=== PATIENT | male | born 1965 | race Caucasian/White ===

== ENCOUNTER 2023-11-04 19:00 | Emergency (ER) | payer OTHER, SELFPAY ==
[2023-11-04 19:02] VITALS: BP 146/87
[2023-11-04 19:18] VITALS: BMI 36.3
--- NOTE | 2023-11-04 19:19 | ED.GENMED ---
History of Present Illness
General
Chief Complaint: Chest Pain
Source: patient
Exam Limitations: none
Time Seen by Provider: 11/04/23 19:07
History of Present Illness
History of Present Illness:
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 Is worse to take a deep breath. He denies shortness of breath. Initially seen at the urgent care and sent here for evaluation. No leg
swelling or calf pain. The pain is made worse when he lies down and when he takes a deep breath. It also tend to start after having a cheeseburger yesterday. No vomiting. No nausea. No fever. No other
Phy Exam
Physical Exam
Physical Exam:
General: Well-appearing male no acute respiratory distress
HEENT: Normocephalic atraumatic
Heart: Regular rate and rhythm no murmurs
Lungs: Clear no wheeze
Abdomen soft slightly tender in epigastric region no guarding rebound normal bowel sounds nondistended nontender
Extremities: No cyanosis
Scores
Heart Score for Chest Pain Patients
STEMI patient?: No
History: Slightly or Non-Suspicious
ECG: Normal
Age: >45 - <65 years
Risk Factors: No Risk Factors
Troponin: </= Normal Limit
Heart Score for Chest Pain Patients: 1
Heart Score Risk: 2.5% MACE over next 6 weeks
Course
Orders/Labs/Results
Orders:
Orders
11/04/23 19:05
EKG with chest pain [ECG as needed] As Directed
ECG as needed for:: Chest Pain
11/04/23 19:07
CXR2 [CR Chest - 2 Views ] Urgent
Comment:
Reason For Exam: chest pain
11/04/23 19:08
EKG [Electrocardiogram (*1)] Urgent
Reason for Study: Chest Pain
EKG- Treatment ONCE
11/04/23 19:17
US Abdomen Complete/Upper Urgent
Comment:
Reason For Exam: epigasrtric pain
11/04/23 19:22
Add On- LAB Urgent
Tests Added?: lipase
11/04/23 19:24
Complete Blood Count/With Diff Urgent
Comprehensive Metabolic Panel Urgent
D-Dimer Urgent
Lipase Urgent
Comment: ADD ON
Troponin I Urgent
Abnormal Lab Results
11/04/23
19:24
WBC 11.8 H 10^3/uL
(4.8-10.8)
RBC 4.54 L 10^6/uL
(4.70-6.10)
Absolute Neuts (auto) 8.2 H 10^3/uL
(1.4-6.5)
Absolute Monos (auto) 1.0 H 10^3/uL
(0.1-0.6)
Lymphocytes % 19.7 L %
(20.5-51.1)
Total Bilirubin 1.9 H mg/dl
(0.2-1.3)
11/04/23 19:24
11/04/23 19:24
Vital Signs
Initial and Last Documented VS:
Initial Vital Signs
Pulse Resp BP
68 18 146/87
11/04/23 19:02 11/04/23 19:02 11/04/23 19:02
Last Documented Vital Signs
Pulse Resp BP Pulse Ox
65 22 104/77 95
11/04/23 22:15 11/04/23 22:15 11/04/23 22:00 11/04/23 22:15
MDM/Problems Addressed
Differential Diagnosis Includes:
Lower chest pain/upper abdominal pain. 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 Considered PE. Given chest pain also consider ACS. Will obtain EKG and troponin. D-dimer pending. Patient's history states that pain was made worse
after having a burger yesterday. Question possible GI involvement such as gastritis or biliary colic.
*Critical Care Note
Total Time (30-74mins, 75-104mins- exclusive of procedures): Not Applicable
Update Note
Update Note:
D-dimer negative troponin undetectable. Patient notes pain after eating since yesterday. Suspect possible gastritis. No sign of ACS. Do not suspect PE. Chest x-ray was clear. Patient stable for discharge. Recommended PPI for suspectded GERD
ED Attending Note
-
Portions of this chart may have been created with voice recognition software.� Occasional wrong word or��sound alike� substitutions may have occurred due to the inherent limitations of voice recognition software.
Discharge Plan
Departure
Patient Disposition: Home (Routine Discharge)
Date of Disposition: 11/04/23
Time of Disposition: 23:08
Patient with high blood pressure during this ER visit?: No
Discharge Problem:
Abdominal pain
Instructions: Acid Reflux and GERD in Adults (DC)
Referrals:
Kyler Galicia NP [Family Provider] -
Activity Restrictions/Additional Instructions:
Start omeprazole [id number] daily. Return for worsening symptoms otherwise follow-up with your family doctor
Interventions
Interventions:
*Risk Screen - Suicide Last Done: 11/04/23 19:19
*General Assessment Last Done: 11/04/23 19:19
*Neglect/Abuse Screening Last Done: 11/04/23 19:19
ED- Fall Risk Assessment Last Done: 11/04/23 19:11
*ED COVID-19 Vaccine History Last Done: 11/04/23 19:19
ED- Cardiac Assessment Last Done: 11/04/23 19:11
Discharge Date and Time
Print Language: ROMANSH
[2023-11-04 19:33] LABS: % Basophils 0.3 % (0-2); % Eosinophils 1.8 % (0-6); % Immature Granulocytes 0.3 % (0-0.5); % Lymphocytes 19.7 % (20.5-51.1); % Monocytes 8.4 % (1.7-9.3); % Neutrophils 69.5 % (42.2-75.2); Absolute Eosinophils 0.2 10^3/uL (0-0.7); Absolute Lymphocytes 2.3 10^3/uL (1.2-3.4); Absolute Neutrophils 8.2 10^3/uL (1.4-6.5); Hematocrit 39.3 % (39.0-52.0); Hemoglobin 13.8 g/dL (13.0-18.0); Mean Corp Hgb Conc. 35.1 g/dL (33.0-37.0); Mean Corpuscular Hgb 30.4 pg (27.0-31.0); Mean Corpuscular Volume 86.6 fL (80.0-94.0); Nucleated Red Blood Cells % 0 % (-); Platelet Count 230 10^3/uL (130-400); Red Blood Cell Count 4.54 10^6/uL (4.70-6.10); Red Cell Dist. Width 12.9 % (11.5-14.5); White Blood Cell Count 11.8 10^3/uL (4.8-10.8)
[2023-11-04 19:55] LABS: ALT (SGPT) 10 U/L (0-50); AST (SGOT) 17 U/L (17-59); Albumin 4.3 g/dl (3.5-5.0); Alkaline Phosphatase 72 U/L (38-126); Blood Urea Nitrogen 13 mg/dl (9-20); Calcium 9.3 mg/dl (8.4-10.2); Carbon Dioxide 26 mmol/L (22-30); Chloride 104 mmol/L (98-107); Estimated Creatinine Clearance 83 ml/min; Glucose 78 mg/dl (70-99); Potassium 3.8 mmol/L (3.5-5.1); Sodium 141 mmol/L (135-145); Total Bilirubin 1.9 mg/dl (0.2-1.3); eGFR > 60.00
[2023-11-04 20:00] LABS: Lipase 64 U/L (23-300)
[2023-11-04 20:07] LABS: Troponin I < 0.012 ng/ml
[2023-11-04 20:10] VITALS: BP 144/87
[2023-11-04 20:10] LABS: D-Dimer 0.39 ug/mlFEU (0.00-0.50)
[2023-11-04 21:18] VITALS: BP 113/77
[2023-11-04 22:00] VITALS: BP 104/77
[2023-11-04 23:00] VITALS: BP 106/79
[2023-11-04 23:40] VITALS: BP 106/79
== END 2023-11-04 23:35 | disposition home or self-care (01) ==
LOC: EMR 19:00
PROVIDERS: Physician Assistant; EMERGENCY PHYSICIAN Student in an Organized Health Care Education/Training Program; FAMILY PHYSICIAN Nurse Practitioner Family
DX: R07.89 Other chest pain (principal); R10.13 Epigastric pain
CPT/HCPCS: 99285; 71046; 76700; 80053; 83690; 84484; 85025; 85379; 93005

== ENCOUNTER 2024-10-05 19:20 | Emergency (ER) | payer OTHER, SELFPAY ==
[2024-10-05 19:23] VITALS: BP 133/93
--- NOTE | 2024-10-05 20:24 | ED.GENMED ---
History of Present Illness
General
Chief Complaint: Musculo-Skeletal Complaint
Source: patient
Exam Limitations: none
Time Seen by Provider: 10/05/24 20:02
Nursing documentation reviewed up to this point in time: agreed with
History of Present Illness
History of Present Illness:
Note:
CHIEF COMPLAINT(S)
Swelling and pain in the ankle and foot.
HISTORY OF PRESENT ILLNESS
The patient is a 59-year-old male who presents with swelling and pain in the ankle and foot that has persisted for two to three days. The swelling is localized and worsens when pressure is applied to the area. He notes some pain with walking. The
patient denies any history of trauma or falls. Pain is primarily localized near the big toe, with relief absent upon movement or manipulation of the ankle. There is notable pain without numbness or tingling. He reports he can feel the foot but
describes significant discomfort. He denies any redness. He denies any fevers or chills. He has not recall any history of prior. The patient denies a history of gout or any bony overgrowth conditions. He denies any chest pain, shortness of
breath, abdominal pain, nausea or vomiting. Patient denies any recent surgeries or hospitalizations. He does not take any blood thinners. He denies any aspirin or Plavix use.
PHYSICAL EXAM
Nursing notes reviewed and vital signs reviewed.
General: Patient is well appearing and in no acute distress; non-toxic
Skin: Warm and dry, no rashes or lesions
Head: Normocephalic, atraumatic
Eyes: Sclera non-icteric. EOMs intact.
Cardiac: Regular rate
Peripheral Vascular: Mild left side pedal swelling noted, no calf swelling
Pulm: Normal respiratory effort
Musculoskeletal: Full range of motion noted to bilateral lower extremities. No bony tenderness noted over the dorsum of the left foot, some tenderness noted over the medial aspect of the left foot near the great toe. No pain with movement of the
phalanges. Ankle joint stable, no ligament laxity with anterior drawer testing or varus valgus stress.
Neuro: CN II-XII intact, no focal neurologic deficits. Sensation intact. 5 out of 5 strength.
Psychiatric: Appropriate mood and affect.
PLAN
1. Perform an X-ray of the foot and ankle
2. Perform an ultrasound to rule out any blood clots due to swelling.
3. Administer a shot of anti-inflammatory medication to alleviate pain
DIFFERENTIAL DIAGNOSIS
The Differential Diagnosis includes, in no particular order and is not limited to:
1. Gout
2. Arthritis
3. Ankle Fracture
4. Deep Vein Thrombosis
5. Soft Tissue Injury
6. Cellulitis
7. Tendonitis
8. Osteoarthritis
9. Rheumatoid Arthritis
10. Ligament Tear
CHART REVIEW
Reviewed ER physician documentation from 11/04/2023 patient seen for epigastric and substernal chest discomfort, he had unremarkable workup was suspected to have GERD
MDM/DISPOSITION
The patient is a 59-year-old male who presents with swelling and pain in the ankle and foot that has persisted for two to three days. there is no clear trauma. He has never had anything like this before. Pain is localized to the left big toe and
to the medial aspect of the left foot. He has full range of motion left 5 out of 5 strength in bilateral lower extremities. His ankle joint stable. He went for x-rays of foot and ankle which showed no acute abnormalities. Considering the pedal
edema, he got an ultrasound which was negative for DVT. Assessment is atraumatic joint swelling. Suspect likely osteoarthritis or gout. Medrol Dosepak prescribed. Discussed strict return precautions. Considered septic arthritis however patient
has no fever, no pain out of proportion, full range of motion. Patient stable for discharge. Discussed follow-up with PCP and Ortho.
Phy Exam
Physical Exam
Physical Exam:
see hpi
Course
Orders/Labs/Results
Orders:
Orders
10/05/24 20:30
CR Ankle - Left 2 Views Urgent
Comment:
Reason For Exam: left ankle pain
CR Foot - Left 2 Views Urgent
Comment:
Reason For Exam: left foot pain, toe pain
US Periph Venous LOWER Ext LT Urgent
Comment:
Reason For Exam: left le swelling
10/05/24 23:05
boot [Ortho Boot Left- Treatment] ONCE
Short or tall?: Short
Vital Signs
Initial and Last Documented VS:
Initial Vital Signs
Temp Pulse Resp BP Pulse Ox
98.5 F 67 15 133/93 97
10/05/24 19:23 10/05/24 19:23 10/05/24 19:23 10/05/24 19:23 10/05/24 19:23
Last Documented Vital Signs
Temp Pulse Resp BP Pulse Ox
98.5 F 67 15 133/93 97
10/05/24 19:23 10/05/24 19:23 10/05/24 19:23 10/05/24 19:23 10/05/24 20:26
*Pulse Oximetry
SaO2: 97
Oxygen Mode of Delivery: Room air
Patient hypoxic: no
*Critical Care Note
Total Time (30-74mins, 75-104mins- exclusive of procedures): Not Applicable
ED Attending Note
-
Portions of this chart may have been created with voice recognition software.� Occasional wrong word or��sound alike� substitutions may have occurred due to the inherent limitations of voice recognition software.
Discharge Plan
Departure
Patient Disposition: Home (Routine Discharge)
Date of Disposition: 10/05/24
Time of Disposition: 23:09
Patient with high blood pressure during this ER visit?: Yes
Condition: Good
Discharge Problem:
Localized swelling of toe of left foot
Instructions: Muscle, joint, and bone pain - Discharge instructions, BLOOD PRESSURE
Prescriptions:
New
methylprednisolone [Medrol (Bruce)] 4 mg tablets,dose pack
See Rx Instructions .ROUTE .COMPLEX Qty: 21 0RF
Rx Instructions:
orally per package directions
Referrals:
Nehemias Birmingham DPM [Active, Podiatry] - Call in 1-3 days for appt
UNKNOWN - PT DOES,NOT KNOW [Family Provider]
Activity Restrictions/Additional Instructions:
You can use the boot for the next few days when ambulating to get the support as her foot heals. Please follow-up with your personal orthopedist or you can call the attached number to schedule appointment with [facility]. Please continue
to monitor your symptoms. Medrol Dosepak has been sent to your pharmacy. Please follow package instructions for dosing. PLEASE RETURN EMERGENCY DEPARTMENT SHOULD YOU DEVELOP ANY ACUTE WORSENING OF YOUR SYMPTOMS, INABILITY TO AMBULATE, PALLOR,
LOSS OF SENSATION, ANY ACUTE WORSENING OF YOUR SWELLING, OR ANY OTHER SIGNS OR SYMPTOMS CONCERNING TO YOU.
Please follow-up with your primary care provider.
Interventions
Interventions:
*Risk Screen - Suicide Last Done: 10/05/24 19:22
*General Assessment Last Done: 10/05/24 19:22
*Neglect/Abuse Screening Last Done: 10/05/24 19:22
*ED- Fall Risk Assessment Last Done: 10/05/24 20:46
*ED COVID-19 Vaccine History Last Done: 10/05/24 19:22
*Nursing Disposition Last Done: 10/05/24 23:29
ED-Musculoskeletal Assessment Last Done: 10/05/24 20:47
Discharge Date and Time
Discharge Date/Time: 10/05/24 23:30
Print Language: LITHUANIAN
[2024-10-05 20:46] VITALS: BMI 33.5
== END 2024-10-05 23:30 | disposition home or self-care (01) ==
LOC: EMR 19:20
PROVIDERS: EMERGENCY PHYSICIAN Emergency Medicine
DX: R22.42 Localized swelling, mass and lump, left lower limb (principal)
CPT/HCPCS: 99284; 73600; 73620; 93971